=== PATIENT | female | born 1955 | race African-American/Black ===

== ENCOUNTER 2019-07-04 06:00 | Day surgery (SDC) | payer BC ==
--- NOTE | 2019-07-01 13:08 | Pre-Procedure Note/Attestation ---
Pre-Procedure Note/Attestation Complete Prior to Procedure Planned Procedure: right Procedure Narrative: Cataract extraction with intraocular lens implant right eye Indications for Procedure Pre-Operative Diagnosis: Cortical Cataract right eye Attestation I attest that I discussed the nature of the procedure; its benefits; risks and complications; and alternatives (and the risks and benefits of such alternatives ), prior to the procedure, with the patient (or the patient's legal medical detail representative). I attest that, if there was a reasonable possibility of needing a blood transfusion, the patient (or the patient's legal medical detail representative) was given the [facility] standardized written summary, pursuant to the [place] Blood Safety Act ([place] Health and Safety Code # 1645, as amended). I attest that I re-evaluated the patient just prior to the surgery and that there has been no change in the patient's H&P, except as documented below: Esau Chance MD Jul 01, 2019 13:07
--- NOTE | 2019-07-01 13:13 | Opthalmology H&P ---
Ophthalmology H&P H&P Chief Complaint: decreased vision in right eye HPI Vision Affects Ability to: read, manage personal affairs HPI Narrative blurry vision Exam Visual Acuity: OD 20/40 OS 20/40 Tension: OD 13 OS 16 Eye Exam: normal OU: external exam, palpebral fissure-width, marginal reflex distance, levator function, corneas, anterior chambers, lens - Cortical Cataracts OU, fundus exam; findings: lens - Cortical Cataracts OU Assessment/Plan Treatment Plan: cataract extraction w/ lens implant Goals of Treatment: improvement of vision, enhance quality of life Attestation Attestation The risks and benefits of the surgery as well as alternative procedures were explained to the patient in detail. Esau Chance MD Jul 01, 2019 13:13
[~2019-07-04] VITALS: Ht 182.9 cm; Wt 108.9 kg
[2019-07-04] VITALS (8 sets, daily range): BP systolic 117–154; BP diastolic 52–96
[2019-07-04] MEDS: Cyclopentolate 1% Opth Sol 2ml RIGHT EYE SCH ×3 (06:31→07:01)
[2019-07-04] MEDS: Phenylephrine 10% Opth Soln 5ml RIGHT EYE SCH ×3 (06:31→07:01)
[2019-07-04] MEDS: Tropicamide 1% Opth 15ml Soln RIGHT EYE SCH ×3 (06:32→07:00)
[2019-07-04] MEDS ORDERED: SIMVASTATIN20 MG ORAL (06:55)
[2019-07-04] MEDS ORDERED: ACETAMINOPHEN-1 EAC2 ORAL (06:55)
[2019-07-04] MEDS ORDERED: VALIUM10 MG ORAL (06:55)
[2019-07-04] MEDS ORDERED: PANTOPRAZOLE SO40 MG ORAL (06:55)
[2019-07-04] MEDS ORDERED: LOSARTAN POTASS25 MG ORAL (06:55)
[2019-07-04] MEDS ORDERED: Tropicamide 1% Opth 15ml Soln RIGHT EYE SCH (07:00)
[2019-07-04] MEDS ORDERED: Tetracaine 0.5% Opth 4ml Soln RIGHT EYE ONE (07:00)
[2019-07-04] MEDS ORDERED: Phenylephrine 10% Opth Soln 5ml RIGHT EYE SCH (07:00)
[2019-07-04] MEDS ORDERED: Akten 3.5% 1ml Btl RIGHT EYE ONE (07:00)
[2019-07-04] MEDS ORDERED: Cyclopentolate 1% Opth Sol 2ml RIGHT EYE SCH (07:00)
[2019-07-04] MEDS ORDERED: Proparacaine 0.5% Opth Soln 15ml RIGHT EYE ONE (07:00)
[2019-07-04] MEDS ORDERED: Lidocaine 2% MPF 5ml Vial INJ ONE (07:14)
[2019-07-04] MEDS ORDERED: acetaZOLAMIDE 500mg Inj ONE (07:14)
[2019-07-04] MEDS ORDERED: Lidocaine 4% Amp ONE (07:14)
[2019-07-04] MEDS ORDERED: Carbachol 0.01% Op Soln 1.5ml vial ONE (07:14)
[2019-07-04] MEDS ORDERED: EPINEPHrine 1mg/1ml Amp ONE (07:14)
[2019-07-04] MEDS ORDERED: BSS 500ml btl ONE (07:15)
[2019-07-04] MEDS ORDERED: Bupivacaine 0.75% 30ml vial INJ ONE (07:16)
[2019-07-04] MEDS ORDERED: BSS 15ml BTL ONE (07:16)
[2019-07-04] MEDS ORDERED: Povidone-Iodine 5% opth solution ONE (07:16)
[2019-07-04] MEDS ORDERED: Tetracaine 0.5% Opth 4ml Soln ONE (07:16)
[2019-07-04] MEDS ORDERED: Sodium Hyaluronate 14 mg/ml 0.85ml ONE (07:17)
[2019-07-04] MEDS ORDERED: LR 1000ml ONE (07:30)
[2019-07-04] MEDS ORDERED: NS Irrig 1000ml ONE (07:30)
[2019-07-04] MEDS ORDERED: Sterile Water Irrig 1000ml IRRIG ONE (07:30)
[2019-07-04] MEDS ORDERED: LR 1000ml 1,000 ML IVLG SCH (07:32)
--- NOTE | 2019-07-04 07:32 | Anethesia Preoperative Eval ---
Anesthesia Pre-op PMH/ROS General Date of Evaluation: Jul 04, 2019 Anesthesiologist: Reynaldo ASA Score: ASA 2 Mallampati Score Class I : Soft palate, uvula, fauces, pillars visible Class II: Soft palate, uvula, fauces visible Class III: Soft palate, base of uvula visible Class IV: Only hard plate visible Mallampati Classification: Class III Surgeon: Meron Diagnosis: Right cataract Surgical Procedure: Right cataract extraction with iol Anesthesia History: none Family History: no anesthesia problems Allergies: Coded Allergies: IBUPROFEN (Verified Allergy, Unknown, 07/01/19) MORPHINE (Verified Allergy, Unknown, 07/01/19) Medications: see eMAR Patient NPO?: Yes NPO Date: Jul 03, 2019 NPO Time: 22:00 Past Medical History Cardiovascular: Reports: HTN, other - HLD; Denies: CAD, TN, valve dz, arrhythmia Pulmonary: Denies: asthma, COPD, APPLE, other Gastrointestinal/Genitourinary: Reports: GERD; Denies: CRI, ESRD, other Neurologic/Psychiatric: Reports: depression/anxiety; Denies: dementia, CVA, TIA, other Endocrine: Denies: DM, hypothyroidism, steroids, other HEENT: Denies: cataract (L), cataract (R), glaucoma, DIOMEDE (L), DIOMEDE (R), other Hematology/Immune: Reports: anemia; Denies: DVT, bleeding disorder, other Musculoskeletal/Integumentary: Reports: other - LBP; Denies: OA, RA, DJD, DDD, edema Other: obesity PSxH Narrative: gastric lap band, ABIODUN, right knee artrhoscopy, left tkr, right ctr Anesthesia Pre-op Phys. Exam Physician Exam Last Vital Signs Date Time Temp Pulse Resp B/P (MAP) Pulse Ox O2 Delivery O2 Flow Rate FiO2 07/04/19 06:44 Room Air 07/04/19 06:39 97.8 76 18 142/75 99 Constitutional: NAD Cardiovascular: RRR Respiratory: CTA Airway Exam Mallampati Score: Class III MO: limited ROM: limited Teeth: missing, intact Anesthesia Pre-op A/P Labs see chart Studies Pre-op Studies: EKG - sr Risk Assessment & Plan Assessment: ASA II Plan: MAC Status Change Before Surgery: Yes - Case cancelled as patient's K 6.1, will reschedule s/p dialysis Pre-Antibiotics Drug: N/A Lesley Shin MD Jul 04, 2019 07:32
[2019-07-04] MEDS ORDERED: Midazolam 2mg/2ml Inj ONE (07:33)
[2019-07-04] MEDS ORDERED: fentaNYL 100 mcg/2 mL ONE (07:33)
[2019-07-04] MEDS ORDERED: Lidocaine 1% MPF 10mg/ml 5ml ONE (07:33)
[2019-07-04] MEDS ORDERED: DiphenhydrAMINE 50mg/ml Inj IVP PRN (07:45)
[2019-07-04] MEDS ORDERED: LORazepam Inj 2mg/ml 1ml IV PRN (07:45)
[2019-07-05] MEDS ORDERED: Tropicamide 1% Opth 15ml Soln RIGHT EYE SCH (07:00)
[2019-07-05] MEDS ORDERED: Phenylephrine 10% Opth Soln 5ml RIGHT EYE SCH (07:00)
[2019-07-05] MEDS ORDERED: Cyclopentolate 1% Opth Sol 2ml RIGHT EYE SCH (07:00)
--- NOTE | 2019-07-05 09:07 | 48 Hour Post Anesthesia Eval ---
Post Anesthesia Evaluation Procedure: right Cataract extrtaction with iol Date of Evaluation: Jul 05, 2019 Airway: patent Nausea: No Vomiting: No If pain is > 6 Comment: 0 Hydration Status: adequate Cardiopulmonary Status: at baseline Mental Status/LOC: patient returned to baseline Post-Anesthesia Complications: 0 Follow-up care needed: ready to discharge Lesley Shin MD Jul 05, 2019 09:07
--- NOTE | 2019-07-05 09:07 | Immediate Post-Op Evaluation ---
Immediate Post-Op Evalulation Immediate Post-Op Evalulation Procedure: right Cataract extrtaction with iol Date of Evaluation: Jul 05, 2019 Pain Score (1-10): 0 Nausea: No Vomiting: No Complications 0 Patient Status: awake, reacts, patent, none Hydration Status: adequate Drug: N/A Lesley Shin MD Jul 05, 2019 09:07
--- NOTE | 2019-07-05 12:17 | Brief Operative Note ---
Immediate Post Operative Note Operative Note Chief Complaint: Blurry vision right eye Pre-op Diagnosis: Cortical Cataract right eye Procedure: Cataract extraction with IOL implant right eye Post-op Diagnosis: Pseudo right eye Findings: consistent w/pre-op dx studies Surgeon: Esau Chance MD Anesthesiologist: Lesley Hilliard MD Anesthesia: MAC Specimen: none Complications: none Condition: stable Fluids: LR Estimated Blood Loss: none Drains: none Implant(s) used?: Yes - IOL-OD Esau Chance MD Jul 05, 2019 12:17
--- NOTE | 2019-07-05 12:21 | Operative Note - PDOC ---
Operative Note Operative Note Date of Operation/Procedure: Jul 04, 2019 Chief Complaint: Blurry vision right eye Pre-op Diagnosis: Cortical Cataract right eye Procedure: Cataract extraction with IOL implant right eye Post-op Diagnosis: Pseudo right eye Operative Findings: consistent w/pre-op dx studies Surgeon: Esau Chance MD Anesthesiologist: Lesley Hilliard MD Anesthesia: MAC Specimen: none Complications: none Condition: stable Fluids: LR Estimated Blood Loss: none Drains: none Implant(s) used?: Yes - IOL OD Indications for Procedure Cortical cataract right eye Description of Procedure This patient has been complaining visually significant cataract in the right eye with the best corrected visual acuity of 20/50 under moderate glare conditions worse. The patient complains of difficulties with glare and light sensitivity,also in performing other activities of daily living and wants to manage personal affairs with comfort and accuracy and see well enough to move with safety at home and outdoors. The risks, benefits and alternatives of the procedure were discussed with the patient in the office prior to scheduling surgery. All questions from the patient were answered after the surgical procedure was explained in detail. The risks of the procedure as explained to the patient include, but are not limited to, pain, infection, bleeding, loss of vision, retinal detachment, need for further surgery, loss of lens nucleus, double vision, etc. Alternative procedures were discussed which include, to do nothing or seek a second opinion. Informed consent for this procedure was obtained from the patient. The patient was referred to a primary care physician for a cardiopulmonary clearance prior to surgery, after proper evaluation was done patient was properly scheduled for outpatient surgery. The patient was brought to the operating room where the anesthesiologist established I.V. lines and cardiac monitoring leads. Mild intravenous sedation was administered. The patient was then prepared with a 5% solution of povidone -iodine to the conjunctival fornix and lashes, and a 5% solution of povidone- iodine to the lids and periorbital skin. The patient was then draped in the usual sterile fashion. A lid speculum was then placed in the operative eye. A keratome blade was then used to create a biplanar incision into the anterior chamber. Viscoelastics was then instilled into the anterior chamber. A capsulorrhexis was then fashioned with an utrata forceps. BSS and a cannula were then used to hydrodissect and hydro delineate the lens. Paracentesis incision was made at 3 o'clock with sharp blade. The phacoemulsification unit, after being properly adjusted and tested, was then used to emulsify the nucleus. Residual cortical material was aspirated with the irrigation and aspiration unit. Healon was then instilled into the anterior chamber. The corneal wound was then enlarged to the size of the optic with the kalpesh keratome blade. The intraocular lens was then inspected for right power and size and thought to be satisfactory. Then the lens was gently placed in the capsular bag. Positioning within the capsular bag was confirmed by direct visualization. Optic centration was accomplished with a Sinskey hook. Viscoelastics was removed from the anterior chamber using the irrigation and aspiration unit. The corneal wound was then tested for leaks and none were found. The lid speculum were then removed. Sponge and needle counts were correct. An eye patch and shield were placed over the operative eye. The patient was taken to the recovery room in stable condition. There were no complications. The patient tolerated the procedure well. The patient was then transferred to the ambulatory surgery unit in stable and satisfactory condition , was given detailed written instructions and asked to follow up in the office the next day. Esau Chance MD Jul 05, 2019 12:21
== END 2019-07-04 09:50 | disposition home or self-care (01) ==
LOC: SUR 06:00
DX: H25.011 Cortical age-related cataract, right eye (principal); I10 Essential (primary) hypertension; E78.5 Hyperlipidemia, unspecified; K21.9 Gastro-esophageal reflux disease without esophagitis; F41.9 Anxiety disorder, unspecified; F32.9 Major depressive disorder, single episode, unspecified; E66.9 Obesity, unspecified; Z96.652 Presence of left artificial knee joint; Z98.84 Bariatric surgery status; Z68.32 Body mass index [BMI] 32.0-32.9, adult
CPT/HCPCS: 66984; J0171; J1120; J2250; J3010; V2632; 94003; 94150